=== PATIENT | female | born 1965 | race Two or more races ===

== ENCOUNTER 2023-12-14 07:06 | Emergency (ER) | payer OTHER, SELFPAY ==
[2023-12-14 07:09] VITALS: BP 139/78
[2023-12-14 07:27] VITALS: BMI 26.3
[2023-12-14 07:28] VITALS: BP 131/84
--- NOTE | 2023-12-14 08:17 | ED.MUSCINJ ---
HPI-Injury
General
Chief Complaint: Musculo-Skeletal Complaint
Source: patient
Exam Limitations: none
Time Seen by Provider: 12/14/23 07:23
Nursing documentation reviewed up to this point in time: agreed with
Travel History
Have you had any contact with someone who has COVID-19?: No
Do you have any symptoms of coronavirus? Fever > 100 degrees, chills, cough, shortness of breath, sore throat, loss of taste or smell, muscle aches, or headache?: No
History of Present Illness-Injury
Initial Injury comments:
58-year-old female with history of HTN, HLD, GERD, NIDDM presents stating she has posterior right thigh and left calf pain since about 130 yesterday. [place] the park [place] and at 1230 they were having competitions and she was
running when she developed the pains. The pains have persisted and are there now. She denies any swelling of her legs. She denies shortness of breath or chest pain. She took Motrin and Tylenol with little relief of the pain. The pain is
aggravated with stepping up and down steps.
Past History
Past History
ED Past Medical History: GERD, HTN, Hypercholesterolemia and NIDDM
ED Past Surgical History: Gynecological (Hysterectomy)
Social History
Tobacco: Non-smoker
Alcohol: Occasional
Personal:
Living: with family
Employment: Employed (Dialysis nurse)
Review of Systems
Review of Systems
Allergies reviewed?: Yes
All Other Systems: ROS reviewed and negative except as documented in HPI and ROS
Constitutional: Denies fever
Respiratory: Denies trouble breathing
Cardiac: Denies chest pain
ABD/GI: Denies abdominal pain or nausea
Musculoskeletal: Reports other (Pain posterior right thigh, left calf); Denies edema
Skin: Reports no symptoms
Neurological: Reports no symptoms
Phy Exam
Physical Exam
Physical Exam:
GENERAL: No acute distress. A&Ox3.
CONSTITUTIONAL: Afebrile.
RESPIRATORY: Regular respirations, nonlabored, lungs clear.
CARDIOVASCULAR: Regular rate and rhythm, no murmurs, no rubs.
GI: Soft, nontender, normal BS
MUSCULOSKELETAL: Mild tenderness left upper to mid calf, no redness or swelling or warmth. Distal neurovascular intact. Posterior aspect of right thigh is without redness or swelling, minimally tender to palpate. Moves with ease. Well perfused.
SKIN: Warm, dry, pink
PSYCH: Normal mood and affect. Well kept, interactive and appropriate
NEUROLOGIC: Awake, alert and oriented. No focal neurological deficits
Injury Course
Orders/Labs/Results
Orders:
Orders
12/14/23 07:44
0.9% Sodium Chloride 1000 ml [Nss] 1,000 ml IV BOLUS
12/14/23 07:45
US Periph Venous LOWER Ext Og Urgent
Comment:
Reason For Exam: right post thigh and left calf pain
12/14/23 08:46
CPK Isoenzyme Urgent
Complete Blood Count/With Diff Urgent
Comprehensive Metabolic Panel Urgent
Abnormal Lab Results
12/14/23
08:46
RBC 3.79 L 10^6/uL
(4.20-5.40)
Hgb 11.0 L g/dL
(12.0-16.0)
Hct 32.7 L %
(37.0-47.0)
Creatinine 0.5 L mg/dL
(0.6-1.0)
Glucose 114 H mg/dl
(70-99)
AST 40 H U/L
(14-36)
Total Creatine Kinase 714 H U/L
(30-135)
CK-MB (CK-2) 3.9 H ng/ml
(0.0-2.4)
12/14/23 08:46
12/14/23 08:46
MDM/Problems Addressed
Differential Diagnosis Includes:
Muscle cramping/strain from overuse, rhabdomyolysis, DVT
MDM/Problems Addressed:
58-year-old female with history of HTN, HLD, GERD, NIDDM presents stating she has posterior right thigh and left calf pain since about 130 yesterday. There was a [place] in the park yesterday and at 1230 they were having competitions and she was
running when she developed the pains. The pains have persisted and are there now. She denies any swelling of her legs. She denies shortness of breath or chest pain. She took Motrin and Tylenol with little relief of the pain. The pain is
aggravated with stepping up and down steps.
Afebrile, NAD
9:30 AM
CBC with no clinically significant abnormality
CMP normal except for total creatinine kinase of 714
Ultrasound bilateral lower extremities negative for DVT
History and exam most consistent with mild rhabdomyolysis with muscle pain.
Patient given 1 L of normal saline solution, instructed to increase her fluid intake over the next few days
*Critical Care Note
Total Time (30-74mins, 75-104mins- exclusive of procedures): Not Applicable
ED Attending Note
-
Portions of this chart may have been created with voice recognition software.� Occasional wrong word or��sound alike� substitutions may have occurred due to the inherent limitations of voice recognition software.
Discharge Plan
Departure
Patient Disposition: Home (Routine Discharge)
Date of Disposition: 12/14/23
Time of Disposition: 10:38
Patient with high blood pressure during this ER visit?: No
Condition: Good
Discharge Problem:
Strain of left calf muscle, Muscle strain of right thigh, Rhabdomyolysis
Instructions: Rhabdomyolysis, Leg Muscle Strain ED
Referrals:
Your, doctor at [place] [Other] - As needed
UNKNOWN - PT DOES,NOT KNOW [Family Provider] -
Stand Alone Forms: Return to Work
Activity Restrictions/Additional Instructions:
As we discussed, you overused the muscles in your legs yesterday causing an increase in the muscle enzyme CPK in your bloodstream called 'rhabdomyolysis'
Drink plenty of fluids in the next 3 days, drink eight 8 ounce glasses of water hourly for the next 8 hours then at least 8 eight ounce glasses of water/fluid daily for the next 3 days.
Tylenol or ibuprofen as needed for pain
See your doctor in 5-7 days if not significantly improved (pain much better) by then
Interventions
Interventions:
*Risk Screen - Suicide Last Done: 12/14/23 07:28
*General Assessment Last Done: 12/14/23 07:28
*Neglect/Abuse Screening Last Done: 12/14/23 07:28
ED- Fall Risk Assessment Last Done: 12/14/23 07:28
*ED COVID-19 Vaccine History Last Done: 12/14/23 07:14
*Nursing Disposition Last Done: 12/14/23 11:01
ED-Musculoskeletal Assessment Last Done: 12/14/23 07:28
Discharge Date and Time
Discharge Date/Time: 12/14/23 11:02
Print Language: ROMANIAN
[2023-12-14 08:45] VITALS: BP 136/85
[2023-12-14] MEDS: NSS 1000 IV (08:46)
[2023-12-14 08:56] LABS: % Basophils 0.4 % (0-2); % Eosinophils 2.2 % (0-6); % Immature Granulocytes 0.1 % (0-0.5); % Lymphocytes 29.7 % (20.5-51.1); % Neutrophils 60.6 % (42.2-75.2); Absolute Eosinophils 0.2 10^3/uL (0-0.7); Absolute Lymphocytes 2.3 10^3/uL (1.2-3.4); Absolute Monocytes 0.5 10^3/uL (0.1-0.6); Absolute Neutrophils 4.6 10^3/uL (1.4-6.5); Hematocrit 32.7 % (37.0-47.0); Mean Corp Hgb Conc. 33.6 g/dL (33.0-37.0); Mean Corpuscular Volume 86.3 fL (81.0-99.0); Mean Platelet Volume 10.2 fL (7.4-10.4); Nucleated Red Blood Cells % 0 %; Platelet Count 223 10^3/uL (130-400); Red Blood Cell Count 3.79 10^6/uL (4.20-5.40); Red Cell Dist. Width 13.6 % (11.5-14.5); White Blood Cell Count 7.6 10^3/uL (4.8-10.8)
[2023-12-14 09:18] LABS: ALT (SGPT) 17 U/L (0-35); AST (SGOT) 40 U/L (14-36); Albumin 4.3 g/dl (3.5-5.0); Alkaline Phosphatase 62 U/L (38-126); Blood Urea Nitrogen 16 mg/dl (7-17); Calcium 9.4 mg/dl (8.4-10.2); Carbon Dioxide 30 mmol/L (22-30); Chloride 100 mmol/L (98-107); Estimated Creatinine Clearance 87 ml/min; Glucose 114 mg/dl (70-99); Potassium 4.2 mmol/L (3.5-5.1); Sodium 139 mmol/L (135-145); Total Bilirubin 0.8 mg/dl (0.2-1.3); Total CK 714 U/L (30-135); Total Protein 7.1 g/dl (6.3-8.2); eGFR > 60.00
[2023-12-14 09:45] VITALS: BP 132/78
[2023-12-14 09:52] LABS: CKMB 3.9 ng/ml (0.0-2.4)
== END 2023-12-14 11:02 | disposition home or self-care (01) ==
LOC: EMR 07:06
PROVIDERS: Registered Nurse; EMERGENCY PHYSICIAN Emergency Medicine
DX: S76.911A Strain of unspecified muscles, fascia and tendons at thigh level, right thigh, initial encounter (principal); S86.112A Strain of other muscle(s) and tendon(s) of posterior muscle group at lower leg level, left leg, initial encounter; M62.82 Rhabdomyolysis; X58.XXXA Exposure to other specified factors, initial encounter; I10 Essential (primary) hypertension; E78.00 Pure hypercholesterolemia, unspecified; K21.9 Gastro-esophageal reflux disease without esophagitis; E11.9 Type 2 diabetes mellitus without complications; Z90.710 Acquired absence of both cervix and uterus; Z99.2 Dependence on renal dialysis
CPT/HCPCS: 99284; 96360; 80053; 82550; 82553; 85025; 93970

== ENCOUNTER 2025-03-06 05:09 | Emergency (ER) | payer OTHER, SELFPAY ==
[2025-03-06 05:12] VITALS: BP 112/94
[2025-03-06 05:49] VITALS: BP 112/62
[2025-03-06] MEDS: DECADRON 10 MG IV (06:25)
[2025-03-06] MEDS: PEPCID 20 MG IV (06:25)
[2025-03-06] MEDS: BENADRYL 25 MG IV (06:25)
[2025-03-06] MEDS: NSS 500 IV (06:26)
--- NOTE | 2025-03-06 06:58 | ED.GENMED ---
History of Present Illness
General
Chief Complaint: Skin Problem
Source: patient
Exam Limitations: none
Time Seen by Provider: 03/06/25 06:06
Nursing documentation reviewed up to this point in time: agreed with
History of Present Illness
History of Present Illness:
Patient presents to ED secondary to persistent itchy rash over the past 2 days. Patient has taken Benadryl at home without relief of symptoms. Since onset of symptoms 2 nights ago, patient has developed abdominal discomfort, without vomiting or
diarrhea. Denies fever or chills. Denies difficulty swallowing. Denies sore throat. Denies any new medications. Denies change in diet. Denies sick contact. Denies recent travel. Denies previous history of similar symptoms.
Past History
Past History
ED Past Medical History: GERD, HTN, Hypercholesterolemia and NIDDM
ED Past Surgical History: Gynecological (Hysterectomy)
Social History
Tobacco: Non-smoker
Alcohol: Occasional
Personal:
Living: with family
Employment: Employed (Dialysis nurse)
Review of Systems
Review of Systems
Allergies reviewed?: Yes
All Other Systems: ROS reviewed and negative except as documented in HPI and ROS
Constitutional: Reports no symptoms; Denies fever or chills
EENT: Reports no symptoms
Respiratory: Reports no symptoms; Denies trouble breathing
Cardiac: Reports no symptoms; Denies chest pain
ABD/GI: Reports abdominal pain; Denies nausea, vomiting or diarrhea
Musculoskeletal: Reports no symptoms
Skin: Reports no symptoms
Neurological: Reports no symptoms
Phy Exam
Physical Exam
Physical Exam:
Physical Exam
General: mild distress, not acutely ill. afebrile
Head: nc/at. eomi
Neck: supple. normal range of motion.
Heart: s1/s2 regular rate and rhythm
Lungs: no acute respiratory distress. clear bilaterally
Abdomen: normal bowel sounds. not tender.
Neuro: alert and oriented x 3. no focal neurological deficits
Skin: diffuse hives noted, sparing face.
Psychiatric: well kept. interactive and cooperative
Extremities: no edema. no calf tenderness.
Course
Orders/Labs/Results
Orders:
Orders
03/06/25 06:18
0.9% Sodium Chloride 500 ml [Nss] 500 ml IV BOLUS
Dexamethasone Sod Phosphate [Decadron] 10 mg IV NOW STA
Diphenhydramine [Benadryl] 25 mg IV NOW STA
Famotidine [Pepcid] 20 mg IV NOW STA
Vital Signs
Initial and Last Documented VS:
Initial Vital Signs
Temp Pulse Resp BP Pulse Ox
97.8 F 124 24 112/94 98
03/06/25 05:12 03/06/25 05:12 03/06/25 05:12 03/06/25 05:12 03/06/25 05:12
Last Documented Vital Signs
Temp Pulse Resp BP Pulse Ox
97.8 F 96 19 109/67 100
03/06/25 05:12 03/06/25 09:00 03/06/25 09:00 03/06/25 09:00 03/06/25 08:30
MDM/Problems Addressed
MDM/Problems Addressed:
Patient reports significant improvement symptoms after treatment. Patient otherwise remains afebrile, hemodynamically stable (resolution of initial tachycardia), and nontoxic appearing during observation. Patient with nonspecific hives, without
clear etiology at this time. As such, patient advised to speak with PCP or museum specialist for further evaluation. Return precautions provided. Patient will be discharged home in stable condition, to the care of her family. Patient will be
given 2-day course of prednisone, to be taken daily, along with Benadryl/Zyrtec/Claritin for symptomatic relief.
*Pulse Oximetry
SaO2: 98
Patient hypoxic: no
*Critical Care Note
Total Time (30-74mins, 75-104mins- exclusive of procedures): Not Applicable
ED Attending Note
-
Portions of this chart may have been created with voice recognition software.� Occasional wrong word or��sound alike� substitutions may have occurred due to the inherent limitations of voice recognition software.
Discharge Plan
Departure
Patient Disposition: Home (Routine Discharge)
Date of Disposition: 03/06/25
Time of Disposition: 08:45
Patient with high blood pressure during this ER visit?: No
Condition: Fair
Discharge Problem:
Allergic reaction
Instructions: Allergic reaction - ED (DC)
Prescriptions:
New
prednisone 50 mg tablet
50 mg PO DAILY Qty: 2 0RF
Referrals:
UNKNOWN - PT DOES,NOT KNOW [Family Provider]
Activity Restrictions/Additional Instructions:
As discussed, please follow-up with your primary care physician and/or referred museum specialist for further evaluation treatment. Please consider return to ED with worsening symptoms. Your prescription has been sent electronically to [email or web address] in [place].
Interventions
Interventions:
*Risk Screen - Suicide Last Done: 03/06/25 09:14
*General Assessment Last Done: 03/06/25 08:28
*Neglect/Abuse Screening Last Done: 03/06/25 08:28
*ED- Fall Risk Assessment Last Done: 03/06/25 08:28
*ED COVID-19 Vaccine History Last Done: 03/06/25 08:28
*Nursing Disposition Last Done: 03/06/25 09:14
ED-Skin Assessment Last Done: 03/06/25 08:28
Discharge Date and Time
Discharge Date/Time: 03/06/25 09:14
Print Language: EQUATORIAL GUINEAN
[2025-03-06 08:24] VITALS: BP 107/64
[2025-03-06 09:00] VITALS: BP 109/67
== END 2025-03-06 09:14 | disposition home or self-care (01) ==
LOC: EMR 05:09
PROVIDERS: EMERGENCY PHYSICIAN Emergency Medicine
DX: T78.40XA Allergy, unspecified, initial encounter (principal); Y92.9 Unspecified place or not applicable; R21 Rash and other nonspecific skin eruption; K21.9 Gastro-esophageal reflux disease without esophagitis; I10 Essential (primary) hypertension; E78.00 Pure hypercholesterolemia, unspecified; E11.9 Type 2 diabetes mellitus without complications; Z79.52 Long term (current) use of systemic steroids; Z90.710 Acquired absence of both cervix and uterus; Z99.2 Dependence on renal dialysis
CPT/HCPCS: 99282; 96374; 96375